=== PATIENT | male | born 1990 | race Caucasian/White ===

== ENCOUNTER 2018-06-09 15:01 | Outpatient (REF) | payer MEDICAID, SELFPAY ==
[2018-06-09 21:34] LABS: Bilirubin Negative (Negative); Blood Negative (Negative); Clarity Clear; Glucose Negative (Negative); Ketones Negative (Negative); Leukocyte Esterase Negative (Negative); Nitrite Negative (Negative); Specific Gravity >= 1.030 (1.005-1.025); Urobilinogen 0.2 EU/dL (Up TO 0.2)
== END 2018-06-09 15:21 ==
LOC: NCHCN 15:01
PROVIDERS: PCP Pediatrics; Visit Provider Nurse Practitioner Family
DX: R30.0 Dysuria (principal)
CPT/HCPCS: 81003

== ENCOUNTER 2019-08-14 13:29 | Outpatient (REF) | payer MEDICAID, SELFPAY ==
[2019-08-17 15:30] LABS: IgA 136 mg/dL (85-499); Tissue Transglutaminase IgA 1.3 U/mL (<4.0)
== END 2019-08-14 13:49 ==
LOC: NCHCN 13:29
PROVIDERS: PCP Pediatrics; Visit Provider Nurse Practitioner Family
DX: K52.9 Noninfective gastroenteritis and colitis, unspecified (principal)
CPT/HCPCS: 82784; 83516

== ENCOUNTER 2020-01-26 14:26 | Outpatient (REF) | payer MEDICAID, SELFPAY ==
[2020-01-26 20:48] LABS: Calculated LDL 180 mg/dL (<100); Cholesterol 237 mg/dL (<200); HDL Cholesterol 45 mg/dL (40-60); Triglyceride 64 mg/dL (<150)
== END 2020-01-26 14:46 ==
LOC: NCHCN 14:26
PROVIDERS: PCP Pediatrics; Visit Provider Nurse Practitioner Family
DX: E78.5 Hyperlipidemia, unspecified (principal)
CPT/HCPCS: 80061

== ENCOUNTER 2020-12-29 10:35 | Outpatient (REF) | payer MEDICAID, SELFPAY ==
[2020-12-29 13:56] LABS: ALT 34 U/L (16-63); AST 12 U/L (15-37); Albumin 3.7 g/dL (3.4-5.0); Alkaline Phosphatase 102 U/L (46-116); Anion Gap 5.9 mmol/L (3-11); BUN 11 mg/dL (7-18); Bilirubin, Total 0.5 mg/dL (0.2-1.0); CO2 30.1 mmol/L (21.0-32.0); CREATININE 0.8 mg/dL (0.70-1.30); Calculated LDL 190 mg/dL (<100); Chloride 104 mmol/L (98-107); Cholesterol 244 mg/dL (<200); Glucose 81 mg/dL (74-106); HDL Cholesterol 39 mg/dL (40-60); Potassium 4.2 mmol/L (3.5-5.1); Sodium 140 mmol/L (136-145); Total Protein 6.8 g/dL (6.4-8.2); Triglyceride 76 mg/dL (<150)
[2020-12-30 09:43] LABS: Hepatitis C Ab w Rflx HCV PCR Negative (Negative)
[2020-12-30 09:53] LABS: HIV-1/2 Ag & Ab Screen Negative (Negative)
[2020-12-30 11:19] LABS: Syphilis Serology (RPR) Negative (Negative)
[2020-12-30 15:25] LABS: Chlamydia Result Negative (Negative); GC Result Negative (Negative)
[2020-12-30 23:40] LABS: Chlamydia amplified RNA Negative (Negative); N gonorrhoeae amplified RNA Negative (Negative); Source THROAT
== END 2020-12-29 10:36 | disposition home or self-care (01) ==
LOC: NCHCN 10:35
PROVIDERS: PCP Pediatrics; Visit Provider Nurse Practitioner Family
DX: Z11.4 Encounter for screening for human immunodeficiency virus [HIV] (principal); Z11.3 Encounter for screening for infections with a predominantly sexual mode of transmission; E78.5 Hyperlipidemia, unspecified; Z11.59 Encounter for screening for other viral diseases
CPT/HCPCS: 80053; 80061; 86803; 87389; 87491; 87591; 86592

== ENCOUNTER 2021-02-20 18:26 | Outpatient (REF) | payer MEDICAID, SELFPAY ==
[2021-02-20 15:51] LABS: Calculated LDL 172 mg/dL (<100); Cholesterol 228 mg/dL (<200); HDL Cholesterol 40 mg/dL (40-60); Triglyceride 84 mg/dL (<150)
== END 2021-02-20 18:27 | disposition home or self-care (01) ==
LOC: NCHCN 18:26
PROVIDERS: PCP Pediatrics; Visit Provider Nurse Practitioner Family
DX: E78.5 Hyperlipidemia, unspecified (principal)
CPT/HCPCS: 80061

== ENCOUNTER 2021-05-30 12:36 | Outpatient (REF) | payer MEDICAID, SELFPAY ==
[2021-05-30 21:34] LABS: HCT 45.7 % (40.0-50.0); MCH 30.2 pg (27.0-33.0); MCHC 32.8 % (32.0-36.0); MCV 92.1 fL (80-95); MPV 12.1 fL (8.0-11.0); Platelet Count 179 10^3/uL (130-400); RBC 4.96 10^6/uL (4.36-5.78); RDW 13.6 % (11.8-14.1); RDW-SD 46.4 fL; WBC 10.92 10^3/uL (4.4-10.8)
[2021-05-30 21:52] LABS: ALT 39 U/L (16-63); AST 18 U/L (15-37); Albumin 3.9 g/dL (3.4-5.0); Alkaline Phosphatase 96 U/L (46-116); Anion Gap 8.3 mmol/L (3-11); BUN 13 mg/dL (7-18); Bilirubin, Total 0.6 mg/dL (0.2-1.0); CO2 29.7 mmol/L (21.0-32.0); CREATININE 0.8 mg/dL (0.70-1.30); Calculated LDL 90 mg/dL (<100); Chloride 104 mmol/L (98-107); Cholesterol 166 mg/dL (<200); Glucose 98 mg/dL (74-106); HDL Cholesterol 45 mg/dL (40-60); Potassium 3.8 mmol/L (3.5-5.1); Sodium 142 mmol/L (136-145); TSH (W/Ref FT4) 1.05 uIU/mL (0.36-3.74); Total Protein 6.9 g/dL (6.4-8.2); Triglyceride 155 mg/dL (<150)
== END 2021-05-30 12:37 | disposition home or self-care (01) ==
LOC: NCHCN 12:36
PROVIDERS: PCP Pediatrics; Visit Provider Family Medicine
DX: E78.5 Hyperlipidemia, unspecified (principal); R51.9 Headache, unspecified; E66.9 Obesity, unspecified
CPT/HCPCS: 80053; 80061; 85027; 84443